=== PATIENT | male | born 1990 | race Caucasian/White ===

== ENCOUNTER 2019-03-01 23:47 | Emergency (ER) | payer SELFPAY ==
[~2019-03-01] VITALS: Ht 160 cm; Wt 56.8 kg
[~2019-03-01 23:47] MED LIST: AMOXICILLIN 50500 MG PO; BACTRIM DS 8001 TAB PO; CEPHALEXIN500 M1 PO; NO HOME MEDICATIONS; NORCO 325 MG-51 TAB PO; PREDNISONE20 MG PO
[2019-03-01 23:48] VITALS: TEMP 97.6
[2019-03-02 00:05] LABS: BASO # 0.1 (0.0-0.2); BASO % 0.7 % (0.0-2.0); EOS # 0.2 (0.0-0.7); EOS % 1.8 % (0-4.0); GRAN # 6.5 (1.4-6.5); GRAN % 65.3 % (42.2-75.2); HEMOGLOBIN 16.3 g/dl (13.5-18.0); LYMPH # 2.5 (1.2-3.4); LYMPH % 25.3 % (20.0-51.0); MEAN CELL VOLUME 93 fl (80.0-100.0); MEAN CORPUSCULAR HEMOGLOBIN 32 pg (27.0-31.0); MEAN CORPUSCULAR HGB CONC 35 g/dl (33.0-37.0); MEAN PLATELET VOLUME 9.5 fl (7.4-10.4); MONO # 0.7 (0.1-0.6); MONO % 6.6 % (1.7-9.3); PLATELET COUNT 349 K/mm3 (130-400); RED BLOOD COUNT 5.03 M/mm3 (4.20-5.60); REDCELL DISTRIBUTION WIDTH-CV 12.3 % (11.5-14.5)
[2019-03-02 00:14] LABS: ALANINE AMINOTRANSFERASE 7 U/L (21-72); ALCOHOL(ethanol),MEDICAL 199 mg/dL; ALKALINE PHOSPHATASE 141 U/L (50-136); ANION GAP 13 mmol/L (7-16); AST,SGOT 21 U/L (15-37); BILIRUBIN,TOTAL < 0.1 mg/dL (0.0-1.0); BLOOD UREA NITROGEN 12 mg/dL (9-20); CALCIUM 8.6 mg/dL (8.4-10.2); CARBON DIOXIDE 23 mmol/L (22-30); CHLORIDE 105 mmol/L (98-107); CREATININE, serum 0.75 (0.66-1.25); GLUCOSE 101 mg/dL (74-106); POTASSIUM 3.5 mmol/L (3.4-5.0); SODIUM 142 mmol/L (137-145); TOTAL PROTEIN 7.5 gm/dL (6.4-8.2)
[2019-03-02 01:00] VITALS: BP 135/87; PULSE 85
== END 2019-03-02 01:43 | disposition home or self-care (01) ==
LOC: COL.ER 23:47
PROVIDERS: Emergency Medicine
DX: S62.306A Unspecified fracture of fifth metacarpal bone, right hand, initial encounter for closed fracture (principal); F10.129 Alcohol abuse with intoxication, unspecified; F17.210 Nicotine dependence, cigarettes, uncomplicated; W22.8XXA Striking against or struck by other objects, initial encounter; Y92.009 Unspecified place in unspecified non-institutional (private) residence as the place of occurrence of the external cause
CPT/HCPCS: J7030; Q4021; Q4050

== ENCOUNTER → 2019-04-06 | Outpatient (CLI) | payer SELFPAY | LOC: COL.CARD 10:00 | DX: R56.9 Unspecified convulsions (principal) ==

== ENCOUNTER 2019-04-17 02:58 | Emergency (ER) | payer SELFPAY ==
[~2019-04-17] VITALS: Ht 167.6 cm; Wt 58.2 kg
[2019-04-17 03:01] VITALS: TEMP 98.1
[2019-04-17 03:40] VITALS: BP 130/80; PULSE 85
== END 2019-04-17 03:46 | disposition home or self-care (01) ==
LOC: COL.ER 02:58
DX: T21.12XA Burn of first degree of abdominal wall, initial encounter (principal); T31.0 Burns involving less than 10% of body surface; X10.1XXA Contact with hot food, initial encounter

== ENCOUNTER 2020-01-31 01:14 | Emergency (ER) | payer BC ==
[~2020-01-31] VITALS: Ht 157.5 cm; Wt 56.8 kg
[2020-01-31] MEDS ORDERED: KEPPRA1000 MG (01:25)
[2020-01-31] MEDS ORDERED: KEPPRA1000 MG PO (01:25)
[2020-01-31 02:45] VITALS: BP 128/74; PULSE 84; TEMP 97.7
== END 2020-01-31 02:46 | disposition home or self-care (01) ==
LOC: COL.ER 01:14
DX: R04.0 Epistaxis (principal)

== ENCOUNTER 2020-02-08 17:53 | Emergency (ER) | payer BC ==
[~2020-02-08] VITALS: Ht 162.6 cm; Wt 54.5 kg
[~2020-02-08 17:53] MED LIST changes: +KEPPRA1000 MG; +KEPPRA1000 MG PO
[2020-02-08 17:59] VITALS: TEMP 97.2
[2020-02-08] MEDS ORDERED: NORCO 325 MG-51 TAB PO ×3 (18:19→19:26)
[2020-02-08 18:45] VITALS: BP 132/70; PULSE 66
== END 2020-02-08 18:45 | disposition home or self-care (01) ==
LOC: COL.ER 17:53
DX: S52.501A Unspecified fracture of the lower end of right radius, initial encounter for closed fracture (principal); F17.210 Nicotine dependence, cigarettes, uncomplicated; W10.9XXA Fall (on) (from) unspecified stairs and steps, initial encounter; Y92.009 Unspecified place in unspecified non-institutional (private) residence as the place of occurrence of the external cause
CPT/HCPCS: Q4021

== ENCOUNTER 2020-05-23 16:15 | Outpatient (RCR) | payer BC | END 2020-05-23 16:20 | disposition home or self-care (01) | LOC: MKS.ESL.OT 16:15 | DX: Z98.890 Other specified postprocedural states (principal) ==

== ENCOUNTER 2020-08-12 15:51 | Emergency (ER) | payer BC ==
[~2020-08-12] VITALS: Ht 162.6 cm; Wt 56.8 kg
[2020-08-12 16:24] LABS: BASO # 0.1 (0.0-0.2); BASO % 0.7 % (0.0-2.0); EOS # 0.1 (0.0-0.7); EOS % 1.4 % (0-4.0); GRAN # 7.6 (1.4-6.5); GRAN % 76.6 % (42.2-75.2); LYMPH # 1.4 (1.2-3.4); LYMPH % 13.6 % (20.0-51.0); MEAN CELL VOLUME 96 fl (80.0-100.0); MEAN CORPUSCULAR HGB CONC 35 g/dl (33.0-37.0); MEAN PLATELET VOLUME 9.5 fl (7.4-10.4); MONO # 0.7 (0.1-0.6); MONO % 7.3 % (1.7-9.3); PLATELET COUNT 315 K/mm3 (130-400); RED BLOOD COUNT 5.69 M/mm3 (4.20-5.60); REDCELL DISTRIBUTION WIDTH-CV 11.9 % (11.5-14.5)
[2020-08-12 16:30] LABS: HEMATOCRIT 54.4 % (42.0-52.0); HEMOGLOBIN 19.2 g/dl (13.5-18.0); MEAN CORPUSCULAR HEMOGLOBIN 34 pg (27.0-31.0)
[2020-08-12 16:35] LABS: ALANINE AMINOTRANSFERASE 16 U/L (4-49); ALBUMIN 3.7 gm/dL (3.5-5.0); ALKALINE PHOSPHATASE 102 U/L (50-136); ANION GAP 6 mmol/L (7-16); AST,SGOT 23 U/L (15-37); BILIRUBIN,TOTAL 0.7 mg/dL (0.0-1.0); BLOOD UREA NITROGEN 9 mg/dL (9-20); CARBON DIOXIDE 28 mmol/L (22-30); CHLORIDE 101 mmol/L (98-107); CREATININE, serum 0.85 (0.66-1.25); GLUCOSE 116 mg/dL (74-106); LIPASE 55 U/L (23-300); POTASSIUM 4.3 mmol/L (3.4-5.0); SODIUM 135 mmol/L (137-145); TOTAL PROTEIN 7.3 gm/dL (6.4-8.2)
[2020-08-12 16:37] LABS: C-REACTIVE PROTEIN < 0.5 mg/dL (0.0-0.9)
[2020-08-12 17:50] VITALS: BP 124/76; PULSE 76; TEMP 98.3
== END 2020-08-12 17:54 | disposition home or self-care (01) ==
LOC: COL.ER 15:51
PROVIDERS: Nurse Practitioner
DX: R10.30 Lower abdominal pain, unspecified (principal); R19.7 Diarrhea, unspecified; R56.9 Unspecified convulsions
CPT/HCPCS: J1885; J7030

== ENCOUNTER 2020-09-03 00:39 | Emergency (ER) | payer SELFPAY ==
[~2020-09-03] VITALS: Ht 162.6 cm; Wt 70.0 kg
[2020-09-03 00:53] LABS: COLLECTION METHOD CLEAN CATCH
[2020-09-03 00:57] LABS: TRICYCLIC ANTIDEPRESS URINE NEGATIVE
[2020-09-03 00:58] LABS: BILIRUBIN,TOTAL 0.4 mg/dL (0.0-1.0); CALCIUM 8.7 mg/dL (8.4-10.2); CREATININE, serum 0.75 (0.66-1.25); PH 7 (5-8); POTASSIUM 3.8 mmol/L (3.4-5.0); SQUAMOUS EPITHELIAL None Seen /hpf; TOTAL PROTEIN 7.6 gm/dL (6.4-8.2); URINE APPEARANCE Clear; URINE BACTERIA None Seen /hpf; URINE BILIRUBIN Negative (NEGATIVE); URINE BLOOD Negative (NEGATIVE); URINE COLOR Straw; URINE GLUCOSE Negative (NEGATIVE); URINE KETONE Negative (NEGATIVE); URINE LEUKOCYTE ESTERASE Trace (NEGATIVE); URINE NITRATE Negative (NEGATIVE); URINE PROTEIN(semi-quant) Negative (NEGATIVE); URINE RBC 0-2 /hpf; URINE UROBILINOGEN Negative (NEGATIVE)
[2020-09-03 00:59] LABS: BASO # 0.1 (0.0-0.2); BASO % 0.8 % (0.0-2.0); EOS # 0.1 (0.0-0.7); EOS % 0.8 % (0-4.0); GRAN # 12.3 (1.4-6.5); GRAN % 81.7 % (42.2-75.2); LYMPH # 1.9 (1.2-3.4); LYMPH % 12.4 % (20.0-51.0); MEAN CELL VOLUME 97 fl (80.0-100.0); MEAN CORPUSCULAR HGB CONC 35 g/dl (33.0-37.0); MEAN PLATELET VOLUME 9.8 fl (7.4-10.4); MONO # 0.6 (0.1-0.6); MONO % 3.9 % (1.7-9.3); PLATELET COUNT 366 K/mm3 (130-400); RED BLOOD COUNT 5.55 M/mm3 (4.20-5.60); REDCELL DISTRIBUTION WIDTH-CV 11.9 % (11.5-14.5)
[2020-09-03 01:01] LABS: HEMATOCRIT 53.7 % (42.0-52.0); HEMOGLOBIN 18.8 g/dl (13.5-18.0); MEAN CORPUSCULAR HEMOGLOBIN 34 pg (27.0-31.0)
[2020-09-03 07:21] VITALS: TEMP 98.2
[2020-09-03 12:17] VITALS: BP 100/63; PULSE 89
== END 2020-09-03 12:17 | disposition home or self-care (01) ==
LOC: COL.ER 00:39
PROVIDERS: Emergency Medicine
DX: R45.851 Suicidal ideations (principal); G40.409 Other generalized epilepsy and epileptic syndromes, not intractable, without status epilepticus; F41.9 Anxiety disorder, unspecified; F17.210 Nicotine dependence, cigarettes, uncomplicated

== ENCOUNTER 2020-12-05 08:32 | Emergency (ER) | payer SELFPAY ==
[~2020-12-05] VITALS: Ht 170.2 cm; Wt 56.8 kg
[2020-12-05 08:32] VITALS: TEMP 97.8
[2020-12-05 09:13] LABS: BASO # 0.1 (0.0-0.2); BASO % 0.7 % (0.0-2.0); EOS # 0.2 (0.0-0.7); EOS % 1.1 % (0-4.0); GRAN # 10.6 (1.4-6.5); GRAN % 77.3 % (42.2-75.2); LYMPH # 1.7 (1.2-3.4); LYMPH % 12.4 % (20.0-51.0); MEAN CELL VOLUME 97 fl (80.0-100.0); MEAN CORPUSCULAR HGB CONC 35 g/dl (33.0-37.0); MEAN PLATELET VOLUME 9.7 fl (7.4-10.4); MONO # 1.1 (0.1-0.6); MONO % 8.2 % (1.7-9.3); PLATELET COUNT 328 K/mm3 (130-400); RED BLOOD COUNT 5.37 M/mm3 (4.20-5.60)
[2020-12-05 09:17] LABS: HEMOGLOBIN 18.1 g/dl (13.5-18.0); MEAN CORPUSCULAR HEMOGLOBIN 34 pg (27.0-31.0)
[2020-12-05 09:18] LABS: HEMATOCRIT 52.1 % (42.0-52.0)
[2020-12-05 09:29] LABS: ALANINE AMINOTRANSFERASE 16 U/L (4-49); ALBUMIN 3.7 gm/dL (3.5-5.0); ALKALINE PHOSPHATASE 101 U/L (50-136); ANION GAP 6 mmol/L (7-16); AST,SGOT 28 U/L (15-37); BILIRUBIN,TOTAL 0.5 mg/dL (0.0-1.0); BLOOD UREA NITROGEN 9 mg/dL (9-20); CALCIUM 8.6 mg/dL (8.4-10.2); CARBON DIOXIDE 26 mmol/L (22-30); CHLORIDE 103 mmol/L (98-107); CREATININE, serum 0.73 (0.66-1.25); GLUCOSE 91 mg/dL (74-106); POTASSIUM 3.5 mmol/L (3.4-5.0); SODIUM 135 mmol/L (137-145); TOTAL PROTEIN 7.3 gm/dL (6.4-8.2)
[2020-12-05 09:33] LABS: C-REACTIVE PROTEIN < 0.5 mg/dL (0.0-0.9)
[2020-12-05] MEDS ORDERED: ZITHROMAX Z PA250 MG PO (10:49)
[2020-12-05 11:06] VITALS: BP 138/80; PULSE 87
== END 2020-12-05 11:06 | disposition home or self-care (01) ==
LOC: COL.ER 08:32
PROVIDERS: Emergency Medicine
DX: J40 Bronchitis, not specified as acute or chronic (principal); G40.909 Epilepsy, unspecified, not intractable, without status epilepticus; F17.210 Nicotine dependence, cigarettes, uncomplicated; Z20.822 Contact with and (suspected) exposure to COVID-19; Z79.899 Other long term (current) drug therapy
CPT/HCPCS: J1885

== ENCOUNTER 2021-04-18 21:59 | Emergency (ER) | payer SELFPAY ==
[~2021-04-18] VITALS: Ht 160 cm; Wt 54.5 kg
[~2021-04-18 21:59] MED LIST changes: +ZITHROMAX Z PA250 MG PO
[2021-04-18 22:02] VITALS: TEMP 98
[2021-04-18] MEDS ORDERED: BONINE25 MG PO (23:29)
[2021-04-18 23:37] VITALS: BP 125/83; PULSE 66
== END 2021-04-18 23:37 | disposition home or self-care (01) ==
LOC: COL.ER 21:59
DX: J34.1 Cyst and mucocele of nose and nasal sinus (principal)

== ENCOUNTER 2021-07-12 00:28 | Emergency (ER) | payer SELFPAY ==
[~2021-07-12] VITALS: Ht 157.5 cm; Wt 81.8 kg
[~2021-07-12 00:28] MED LIST changes: +BONINE25 MG PO
[2021-07-12 00:29] VITALS: TEMP 98.1
[2021-07-12] MEDS ORDERED: PERCOCET 325 MG1 TA2 PO (02:07)
[2021-07-12] MEDS ORDERED: CEPHALEXIN500 M1 PO (02:07)
[2021-07-12 02:32] VITALS: BP 126/89; PULSE 87
== END 2021-07-12 02:31 | disposition home or self-care (01) ==
LOC: COL.ER 00:28
DX: S61.442A Puncture wound with foreign body of left hand, initial encounter (principal); F17.210 Nicotine dependence, cigarettes, uncomplicated; W34.00XA Accidental discharge from unspecified firearms or gun, initial encounter; Y93.89 Activity, other specified
CPT/HCPCS: J0690; J3010

== ENCOUNTER 2021-12-17 22:06 | Emergency (ER) | payer SELFPAY ==
[~2021-12-17] VITALS: Ht 162.6 cm; Wt 56.8 kg
[~2021-12-17 22:06] MED LIST changes: +PERCOCET 325 MG1 TA2 PO
[2021-12-17 22:45] VITALS: TEMP 98
[2021-12-18 01:11] VITALS: BP 117/67; PULSE 70
== END 2021-12-18 01:13 | disposition home or self-care (01) ==
LOC: COL.ER 22:06
DX: S05.01XA Injury of conjunctiva and corneal abrasion without foreign body, right eye, initial encounter (principal); Z28.310 Unvaccinated for COVID-19; X58.XXXA Exposure to other specified factors, initial encounter

== ENCOUNTER 2022-02-20 00:07 | Emergency (ER) | payer SELFPAY ==
[~2022-02-20] VITALS: Ht 160 cm; Wt 56.8 kg
[2022-02-20 00:11] VITALS: PULSE 83; TEMP 97.6
== END 2022-02-20 00:54 | disposition home or self-care (01) ==
LOC: COL.ER 00:07
DX: H92.01 Otalgia, right ear (principal); F17.210 Nicotine dependence, cigarettes, uncomplicated; Z96.22 Myringotomy tube(s) status; Z28.310 Unvaccinated for COVID-19

== ENCOUNTER 2022-03-19 21:41 | Emergency (ER) | payer SELFPAY ==
[~2022-03-19] VITALS: Ht 160 cm; Wt 56.8 kg
[2022-03-19 22:07] VITALS: BP 128/78; TEMP 97.9
[2022-03-19] MEDS ORDERED: ILOTYCIN5 MG/GM OP (22:29)
[2022-03-19 22:58] VITALS: PULSE 73
== END 2022-03-19 22:58 | disposition home or self-care (01) ==
LOC: COL.ER 21:41
DX: T15.91XA Foreign body on external eye, part unspecified, right eye, initial encounter (principal); Z28.310 Unvaccinated for COVID-19; X58.XXXA Exposure to other specified factors, initial encounter

== ENCOUNTER 2022-07-07 00:36 | Emergency (ER) | payer SELFPAY ==
[~2022-07-07] VITALS: Ht 162.6 cm; Wt 56.8 kg
[~2022-07-07 00:36] MED LIST changes: +ILOTYCIN5 MG/GM OP
[2022-07-07 00:38] VITALS: BP 136/89
[2022-07-07] MEDS ORDERED: AMOXICILLIN 50500 MG PO (00:55)
[2022-07-07 01:00] VITALS: PULSE 96; TEMP 97.6
[2023-05-11] MEDS ORDERED: AMOXICILLIN 50500 MG PO (01:26)
== END 2022-07-07 01:02 | disposition home or self-care (01) ==
LOC: COL.ER 00:36
DX: H66.92 Otitis media, unspecified, left ear (principal); F17.200 Nicotine dependence, unspecified, uncomplicated; Z96.22 Myringotomy tube(s) status; Z28.310 Unvaccinated for COVID-19